=== PATIENT | male | born 1965 | race Caucasian/White ===

== ENCOUNTER → 2018-04-25 10:28 | Outpatient (CLI) | payer BC, SELFPAY ==
--- NOTE | 2018-04-25 10:33 | XR_ITS ---
XR shoulder LT min 2V HISTORY: ITS.REASON: LT SHOULDER PAIN ORDERING PHYSICIAN: Zachary Grissom MD PATIENT AGE: 52 years Comparison: None FINDINGS: No fracture or dislocation. No lytic or blastic change. There is normal mineralization. The joint spaces are well-preserved. No significant degenerative/arthritic changes. No erosive changes evident. No subacromial stenosis IMPRESSION: Negative, no acute finding
== END ==
PROVIDERS: PCP Family Medicine; Visit Provider Family Medicine
DX: M25.512 Pain in left shoulder (principal)
CPT/HCPCS: 73030

== ENCOUNTER → 2019-04-26 14:40 | Outpatient (CLI) | payer BC, SELFPAY ==
[2019-04-26 17:09] VITALS: BMI 25.8
== END ==
PROVIDERS: PCP Family Medicine; Visit Provider Family Medicine
DX: Z71.3 Dietary counseling and surveillance (principal)
CPT/HCPCS: 97802

== ENCOUNTER → 2019-07-25 11:37 | Outpatient (CLI) | payer BC, SELFPAY ==
[2019-07-25 14:00] LABS: Blood Urea Nitrogen 12 mg/dL (7-18); Creatinine,Serum 0.83 mg/dL (0.70-1.30); Estimated Glomerular Filt Rate 96 ml/min (>60); GFR (African American) 116 ML/MIN (>60)
== END ==
PROVIDERS: Visit Provider Urology
DX: R10.2 Pelvic and perineal pain (principal); N41.1 Chronic prostatitis
CPT/HCPCS: 36415; 82565; 84520

== ENCOUNTER → 2019-08-03 08:48 | Outpatient (CLI) | payer BC, SELFPAY ==
--- NOTE | 2019-08-03 08:50 | CT_ITS ---
PROCEDURE: CT ABDOMEN PELVIS WO/W CON CLINICAL INDICATION: CHRONIC PELVIC PAIN Chronic pelvic pain, chronic prostate pain, rectal pain COMPARISON: No exams were available for comparison TECHNIQUE: IV Contrast: 75ML OPTIRAY 350 Oral Contrast 450ml Redicat Axial images obtained with sagittal and coronal reformats. All CT scans at the facility use one or more dose reduction, viz: automated exposure control, ma/kV adjustment per patient size (including targeted exams where dose is matched to indication, i.e. head), or iterative reconstruction technique. Images are performed without and with contrast with 10 minutes delayed images. FINDINGS: No acute finding in the lung bases. Calcified hilar lymph nodes and subcarinal lymph nodes noted. Extensive coronary artery calcification also present. The There is a gallstone noted. The liver, spleen, adrenal glands, pancreas, and kidneys have an unremarkable appearance. No renal or ureteral calculi. No hydronephrosis. No intestinal obstruction or free air. Unremarkable appendix. There are scattered colonic diverticula within the descending and sigmoid colon. There is mild thickening of the sigmoid colon which may be due to muscular hypertrophy. No stranding of the pericolic fat evident. There is central prostate coarse calcifications. Urinary bladder has an unremarkable appearance. No acute bony anomalies IMPRESSION: 1. Cholelithiasis 2. Diverticulosis of the descending and sigmoid colon with mild mucosal thickening of the sigmoid colon which may be due to muscular hypertrophy 3. Otherwise negative Dictated by: Alfonso Guzman MD 08/04/2019 06:14 Electronically signed by Alfonso Guzman MD in [place] 08/04/2019 06:14
== END ==
PROVIDERS: PCP Family Medicine; Visit Provider Urology
DX: G89.29 Other chronic pain (principal); R10.2 Pelvic and perineal pain
CPT/HCPCS: 74178; Q9967

== ENCOUNTER → 2019-09-09 10:43 | Outpatient (CLI) | payer BC, SELFPAY ==
[2019-09-09 12:43] LABS: Blood Urea Nitrogen 12 mg/dL (7-18); Creatinine,Serum 0.89 mg/dL (0.70-1.30); Estimated Glomerular Filt Rate 89 ml/min (>60); GFR (African American) 107 ML/MIN (>60)
== END ==
PROVIDERS: Visit Provider Colon & Rectal Surgery
DX: Z01.818 Encounter for other preprocedural examination (principal)
CPT/HCPCS: 36415; 82565; 84520

== ENCOUNTER → 2019-09-12 08:28 | Outpatient (CLI) | payer BC, SELFPAY ==
--- NOTE | 2019-09-12 08:31 | MR_ITS ---
PROCEDURE: MR LUMBAR SPINE WO/W CON CLINICAL INDICATION: NUMNBESS AND TINGLING LEFT LEG Bilateral buttock pain, left leg pain numbness and tingling COMPARISON: CT ABDOMEN PELVIS WO/W CON from 08/03/2019 TECHNIQUE: Standard multiplanar multiecho sequences are performed without and with gadolinium enhancement. 3-D MIP and myelographic images are also rendered and reviewed FINDINGS: The spinal cord ends at the L1 level. There is normal alignment. L1-L2: Unremarkable. L2-L3: Mild degenerative disc disease with minimal bulging disc and mild facet and ligamentum hypertrophy with mild bilateral foraminal narrowing. There is a small annular fissure along the posterior aspect of the disc with minimal protrusion without impingement. L3-L4: Unremarkable. L4-5: Minimal bulging of the disc along with facet and ligamentum hypertrophy with mild bilateral foraminal narrowing. This is slightly greater on the left. L5-S1: Degenerative disc disease with mild bulging disc with a small broad-based central/left paracentral disc protrusion abutting the anterior medial aspect of the left S1 nerve root without displacement. No extruded herniated disc or canal stenosis. IMPRESSION: 1. L2-L3: Mild degenerative disc disease with minimal bulging disc and mild facet and ligamentum hypertrophy with mild bilateral foraminal narrowing. There is a small annular fissure along the posterior aspect of the disc with minimal protrusion without impingement. 2. L4-5: Minimal bulging of the disc along with facet and ligamentum hypertrophy with mild bilateral foraminal narrowing. This is slightly greater on the left. L5-S1: Degenerative disc disease with mild bulging disc with a small broad-based central/left paracentral disc protrusion abutting the anterior medial aspect of the left S1 nerve root without displacement. 3. No extruded herniated disc or canal stenosis. Dictated by: Alfonso Guzman MD 09/13/2019 09:10 Electronically signed by Alfonso Guzman MD in [place] 09/13/2019 09:10
== END ==
PROVIDERS: PCP Family Medicine; Visit Provider Colon & Rectal Surgery
DX: R20.0 Anesthesia of skin (principal); R20.2 Paresthesia of skin; M79.605 Pain in left leg
CPT/HCPCS: 72158; 76376; A9576

== ENCOUNTER → 2020-01-15 09:01 | Outpatient (POV) | payer BC, SELFPAY ==
[2020-01-15 09:11] VITALS: BP 153/96; PULSE 86; RESP 18; O2SAT 99; BMI 25.0
--- NOTE | 2020-01-15 13:12 | HMH.PMCON ---
Assessment and Plan (1) Degenerative disc disease Current visit: Yes Status: Chronic Qualifiers: Spinal region: lumbar Qualified Code(s): M51.36 - Other intervertebral disc degeneration, lumbar region Category: Medical - Assessment and plan all Dx Assessment and Plan for all problems:: We will schedule a L4-L5 lumbar epidural steroid injection with the patient. We will see if this is any benefit to him. I will follow-up with him after this reassess his symptoms at that time he has been instructed to call the office if he has any issues prior to his next appointment. Dr. Leone has reviewed this note and agrees with this plan of care. This note was dictated using voice recognition software and may contain errors or omissions HPI - Data of Consult Consult date: 01/15/20 Requesting Physician: Opal Contreras APRN Primary Care Provider: Zachary Grissom MD - Consult Narrative Reason for consult: Rectal pain, back pain, leg pain History of present illness: Mr. Adkins is a 54 year old male who presents today with for consultation in regard to his low back rectal and leg pain. He rates his pain a 6 out of 10 today. He has had it for over 6 months. 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 Patient was seen by both gastroenterology and his primary care physician. Patient had a colonoscopy which was normal. Patient had an enlarged prostate which resolved. Patient has pain in his low back reactive it is left leg. Patient does have an MRI showing S1 nerve abutment. Patient I discussed epidural injections he is interested in moving forward with this. He is not on any anticoagulation therapy. CC: Opal Contreras APRN [facility] History I have reviewed the patient's past medical history: Yes Medical History: Reports:: Hyperlipidemia, Hypertension Denies:: Coronary Artery Disease, Diabetes Mellitus Type 1, Diabetes Mellitus Type 2 *Have you ever received a pneumonia vaccine?: Yes *Have you received a flu vaccine this season?: Yes Other Surgeries: Yes: Colonoscopy Amputation: No Fractures: No - *Social History Smoking Status: Current every day smoker Alcohol Intake: never Substance Use Type: denies use *Occupational Status:: other Housing: apartment Household Members: spouse *Travel in the last 8 weeks: None Family Hx:: Unable to obtain Review of Systems - Review of Systems ROS General: no recent weight change, no fever, no sleep disturbances Respiratory: no cough, no shortness of air, no recurring pulmonary infections Cardiovascular/Peripheral Vascular: No chest pain, No palpitations, no edema, no shortness of breath. Gastrointestinal: no new onset incontinence, normal bowel movements reported Genitourinary: no new onset incontinence Musculoskeletal: Back pain, leg pain, rectal pain Psychiatric: normal mood/ affect, Neurological: [denies new onset weakness in extremities], [denies new onset balance issues] Meds Home Medications Medication Instructions Recorded Confirmed Type gabapentin 100 mg capsule 100 mg PO DAILY 09/05/19 09/05/19 History Amlodipine Besylate [Amlodipine 5 mg PO DAILY 01/15/20 01/15/20 History 5mg tab] Ezetimibe 10 mg PO DAILY 01/15/20 01/15/20 History Gabapentin [Gabapentin 300mg Cap] 300 mg PO HS 01/15/20 01/15/20 History LORazepam [Lorazepam] 0.5 mg PO DAILY 01/15/20 01/15/20 History Rosuvastatin Calcium 10 mg PO DAILY 01/15/20 01/15/20 History allopurinoL [Allopurinol 100mg 100 mg PO DAILY 01/15/20 01/15/20 History tablet] lisinopriL [Lisinopril 2.5mg Tab] 2.5 mg PO DAILY 01/15/20 01/15/20 History Allergies Allergy/AdvReac Type Severity Reaction Status Date / Time amoxicillin [AMOXICILLIN] Allergy Unknown Unverified 09/05/19 13:04 Objective Vital signs: Pulse Resp BP Pulse Ox 86 18 153/96 H 99 01/15/20 09:11 01/15/20 09:11 01/15/20 09:11
== END ==
PROVIDERS: PCP Family Medicine; Visit Provider Clinical Nurse Specialist Family Health
DX: M51.36 Other intervertebral disc degeneration, lumbar region (principal); M79.606 Pain in leg, unspecified; K62.89 Other specified diseases of anus and rectum; Z72.0 Tobacco use
CPT/HCPCS: 99202

== ENCOUNTER → 2020-02-19 10:26 | Outpatient (POV) | payer BC, SELFPAY ==
--- NOTE | 2020-02-19 11:23 | HMH.VVPMSO ---
[facility] Virtual Visit SOAP Consent for virtual visit:: With the recent concerns about the COVID-19, we are trying to minimize exposure to you by shifting to telehealth appointments whenever possible. It restricts me from seeing you in person, but the trade off is protecting you during this pandemic. Can you see and hear me okay, and do you consent to this option? If not, I would be happy to see if we can reschedule your appointment in the future, when feasible. Has patient consented to this virtual visit?: Yes Subjective:: Patient's assessment is being performed today via telemedicine. Patient has chosen to have telemedicine visit for his symptoms due to risk of COVID19. Patient is a pleasant 54-year-old who is being treated for low back pain with lumbar radiculopathy symptoms. The patient recently underwent a lumbar epidural steroid injection. He says that he did not get any relief following the injection. He does rate his pain a 1 or 2 out of 10 today, however. Patient does say most of his pain is in his mid coccygeal area, however, after further discussion, the patient is also complaining of bilateral SI joint pain. Patient says that his pain is worse with walking. He denies any type of back pain. He says the pain is mainly in his bilateral buttocks. He says he does not have any pain when sitting. He also says he does not have pain with standing. Patient says the pain is noticeable pool with walking. Review of Systems General: No recent weight changes, no fever, no sleep disturbances Respiratory: No cough, no shortness of air, no recurring pulmonary infections Cardiovascular/peripheral vascular: No chest pain, no palpitations, no edema, no shortness of breath Gastrointestinal: No new onset incontinence, normal bowel movements reported Genitourinary: No new onset incontinence Musculoskeletal: Bilateral buttock pain Psychiatric: Normal mood/affect Neurological: [Denies weakness in extremities], [denies balance issues] Objective:: Physical exam General: Alert and oriented x3, no acute distress, pleasant and cooperative, [on room air] Lungs: Respirations even and unlabored, symmetrical chest expansion Eyes: PERRL Musculoskeletal: Flexion and extension of lumbar spine somewhat guarded secondary to pain, deep tendon reflexes normal, strength in upper and lower extremities [5/5], [abnormal gait noted], positive [place]'s test, positive Bryan's test, positive compression test Neurological: Speech clear, manager system equal, no gross sensory deficit Assessment:: Bilateral sacroiliitis Plan:: Given the patient's symptoms, and positive Pradeep, Bryan's, compression test, the patient would benefit from bilateral SI joint injections. We will schedule him for the injections. He does understand we will not be able to perform the injections until the coronavirus pandemic has resolved. Unfortunately, at this time, we are unable to perform injections within the clinic. Patient has been instructed to contact clinic if he has any concerns before his next appointment. Dr. Leone has reviewed this note and agrees with this plan of care. This note was dictated using voice recognition software and make contain errors or omissions. This encounter was performed as telemedicine. The visit was performed via a secure to a video and audio to minimize risk and transmission of COVID19. Patient understands limitations of telemedicine visits which include inability to check reflexes, possibly missing subtle findings on the physical exam. Alternative options were presented to the patient and the patient did elect to proceed with the visit. The patient and I specifically discussed risk factors for COVID19. These risks include, but are not limited to age greater than 60, heart or lung disease, diabetes, immunosuppression, and travel. We also discussed NSAIDs may worsen COVID19 infection or symptoms. Patient should not use NSAIDs to treat COVID19 signs
== END ==
PROVIDERS: Visit Provider Clinical Nurse Specialist Family Health
DX: M46.1 Sacroiliitis, not elsewhere classified (principal)
CPT/HCPCS: 99212

== ENCOUNTER → 2020-03-04 12:27 | Outpatient (POV) | payer BC, SELFPAY | PROVIDERS: PCP Family Medicine; Visit Provider Specialist | DX: M51.26 Other intervertebral disc displacement, lumbar region (principal) | CPT/HCPCS: 95886; 95909 ==

== ENCOUNTER 2020-03-08 07:48 | Day surgery (SDC) | payer BC, SELFPAY ==
[2020-03-08 08:02] VITALS: BP 144/83; PULSE 78; RESP 18; TEMP 36.6; O2SAT 99; BMI 24.8
[2020-03-08 08:32] VITALS: BP 138/81; PULSE 76; RESP 18
[2020-03-08 08:34] VITALS: BP 140/85; PULSE 79; RESP 18; O2SAT 99
--- NOTE | 2020-03-08 08:41 | HMH.PMPROC ---
- Procedure Date: 03/08/20 Time: 08:41 Anesthesiologist:: Sonu Leone MD Complications:: None Pre-procedure Diagnosis:: Sacroiliitis Post-procedure Diagnosis:: Same Indications for Procedure:: This patient is a pleasant 54-year-old white male who we have been treating for pain in the lower back hips and in the tailbone area. He did receive a epidural steroid injection which did not give him much benefit. We will do bilateral SI joint injections today to see if this helps with his pain symptoms. He does have a positive Bryan's test bilaterally. Is positive SI joint compression test bilaterally. He has a positive Pradeep test bilaterally. We will do this today as his pain is increasing significantly it is affecting his daily function and activities of daily living. We will do an injection today to keep him out of the emergency room and off oral opioids. Procedure Details:: B/L SI joint injection under fluoroscopy Informed consent was obtained and the risks and benefits of the procedure was explained to the patient. The patient was taken to the procedure room and placed prone on the procedure table. The patient was prepped using ChloraPrep. The skin and subcutaneous tissues overlying the SI joints were anesthetized using lidocaine. I placed a 22-gauge needle first in the left SI joint and second in the right SI joint. Needle placement was confirmed with dye. After this we injected 5 mL bupivacaine 0.25% and Depo-Medrol 40 mg into each SI joint. Patient tolerated the procedure well with no complication. Plan and Disposition:: We will follow-up with him in 2 weeks. Will reevaluate his symptoms at that time.
[2020-03-08 08:49] VITALS: BP 132/80; PULSE 63; RESP 20; O2SAT 99
== END 2020-03-08 08:50 | disposition home or self-care (01) ==
LOC: SC.PAINP 07:50
PROVIDERS: PCP Family Medicine; Visit Provider Anesthesiology
DX: M46.1 Sacroiliitis, not elsewhere classified (principal); I10 Essential (primary) hypertension; Z88.1 Allergy status to other antibiotic agents; Z79.899 Other long term (current) drug therapy; Z79.82 Long term (current) use of aspirin; Z79.51 Long term (current) use of inhaled steroids
CPT/HCPCS: 27096; G0260; J1030; Q9966

== ENCOUNTER → 2020-03-25 11:40 | Outpatient (POV) | payer BC, SELFPAY ==
[2020-03-25 11:55] VITALS: BP 122/82; PULSE 89; RESP 18; TEMP 36.6; O2SAT 97; BMI 24.8
--- NOTE | 2020-03-26 08:29 | P.CONS_ITS ---
[facility] Pain Management SOAP Note Subjective:: Patient is a pleasant 54-year-old white male who presents today for follow-up after bilateral SI joint injections. Patient has had epidurals along with SI joint injections. It is not benefited him extremely however he states he has been able to discontinue his pain medication at home. He rates his pain a 2 out of 10. He has a constant pressure in his low coccygeal/rectal area. Patient and I discussed a compounding cream and potentially some physical therapy to utilize ultrasound to help with his pain. We will get him a physical therapy consultation to date. ROS General: no recent weight change, no fever, no sleep disturbances Respiratory: no cough, no shortness of air, no recurring pulmonary infections Cardiovascular/Peripheral Vascular: No chest pain, No palpitations, no edema, no shortness of breath. Gastrointestinal: no new onset incontinence, normal bowel movements reported Genitourinary: no new onset incontinence Musculoskeletal: Low back, rectal pain Psychiatric: normal mood/ affect, Neurological: [denies new onset weakness in extremities], [denies new onset balance issues] Objective:: Physical Exam General: Alert and oriented x3, no acute distress, pleasant and cooperative, [on room air] Lungs: Resps E/U, Symmetrical chest expansion, Eyes: PERRL Musculoskeletal: Patient has normal range of motion however going from a seated to standing position he does seem to have some guarding secondary to pain. Deep tendon reflexes normal, strength in upper and lower extremities [5/5], normal gait noted Neurological: speech clear, upper marker equal, no gross sensory deficits Assessment:: Rectal pain, coccygeal pain Plan:: Patient has been seen by multiple surgeons. He has had a normal colonoscopy. Patient and I discussed physical therapy along with some compounding cream. We will move forward with this and see the patient back in 2 to 3 months. Patient's been instructed to call the office if he has any issues prior to his next appointment. Dr. Leone has reviewed this note and agrees with this plan of care. This note was dictated using voice recognition software and may contain errors or omissions [facility] History I have reviewed the patient's past medical history: Yes Medical History: Reports:: Diabetes Mellitus Type 2, Hyperlipidemia, Hypertension Denies:: Cancer, Coronary Artery Disease, Diabetes Mellitus Type 1, MRSA, Seizures *Have you ever received a pneumonia vaccine?: Yes *Have you received a flu vaccine this season?: Yes Other Medical History: Denies: Blood Transfusion Reaction Other Surgeries: Yes: Colonoscopy Amputation: No Fractures: No - *Social History Smoking Status: Current every day smoker Alcohol Intake: never Substance Use Type: denies use *Occupational Status:: other Housing: apartment Household Members: spouse *Travel in the last 8 weeks: None Family Hx:: Unable to obtain
== END ==
PROVIDERS: PCP Family Medicine; Visit Provider Clinical Nurse Specialist Family Health
DX: K62.89 Other specified diseases of anus and rectum (principal); M53.3 Sacrococcygeal disorders, not elsewhere classified
CPT/HCPCS: 99212

== ENCOUNTER 2020-06-21 09:00 | Outpatient (RCR) | payer BC, SELFPAY ==
--- NOTE | 2020-03-25 16:38 | HMH.PTOPEV ---
PT Outpatient Evaluation Rehab PT Outpatient Evaluation Start: 03/25/20 15:36 Freq: Status: Active Protocol: Document 03/25/20 16:06 [email or web address] (Rec: 03/25/20 16:38 [email or web address] [id number]) Electronically Signed By Reid Bear, PT 03/25/20 16:06 Outpatient Therapy Subjective History Subjective History Pt. is a 54 year old male who presents to outpatient PT clinic with reports of chronic and constant rectal P! of insidious onset for one year. Pt. reports symptoms beginning in LB, but now states moved down into my butt. Recent diagnostic imaging positive for lumbar spine bulging discs per pt. report. Pt. reports no symptom relief post LB injection, but states some symptom relief post coccygeal injection in the Pain Clinic. Pt. reports symptoms worsen with sitting and twisting, but is gets relief w/ standing and walking. Pt. reports LLE radicular symptoms, but states complete symptom relief w/ Gabapentin. Pt. denies bowel/ baldder dysfunction. PMH includes Colonoscopy, Nephrolithiasis, Hypertension, Hyperlipidemia, and Bronchitis. Current medications include Gabapentin , Ibuprofen, Rosuvastatin, and Allopurinol. Chief Complaint Pain Symptom Type Burning Symptoms Relieved By Activity Symptoms Aggravated By Sitting,Twisting Prior Functional Limitations None Current Functional Limitations Driving,Sitting,Squatting Symptom Description Constant but Variable Level of pain today (0-10) 2 Pain scale - at its best (0-10) 1 Pain scale - at its worst (0-10) 6 Lumbopelvic Eval Posture Thoracic Spine Posture Standing Position Neutral Lumbar Spine Posture Standing Position Neutral Assistive device Assistive Devices None / NA Gait Observation General Gait Pattern Observation No Deviations/Normal Palapation tenderness bilateral Lumbar/Sacral Palpation Findings None/Normal Lumbar/Sacral Palpation Overall Comment RLE adductor vanessa mid muscle
--- NOTE | 2020-05-03 10:30 | HMH.RHREAS ---
Rehab Reassessment Rehab OP Re-assessment Start: 05/03/20 09:48 Freq: Status: Active Protocol: Document 05/03/20 09:48 JADE (Rec: 05/03/20 10:30 JADE [id number]) Electronically Signed By eFrcho Luevano, PT 05/03/20 09:48 Rehab Re-assessment Subjective Subjective Pt reports significantly improved pain in the anal sphincter area @2/10 on VAS. Objective Objective Notes TTP: B ADD MM BELLY 1-2/4 MMT: B HIP ADD 4+-5/5 AROM: LUMBAR SPINE WFL Assessment Progress Assessment Progressing as Expected Assessment Notes PT W/IMPROVED STRENGTH, AND TTP Patient goals met STG'S 3/3 LTG'S 4/6 Goals Not Met LTG'S 2/6 Plan Plan PT TO CONT. W/SKILLED P.T. TO MAKE FURTHER IMPROVEMENTS IN STRENGTH AND TTP TO ALLOW FOR OPTIMAL FUNCTION Frequency of Therapy 1-2X/WK Duration of therapy 3-4WKS Time and Billing Re-Eval Time 15 Re-Eval Billing Units 1 PHYSICIAN CERTIFICATION: I certify the specified therapy services for Jericoh Adkins are required, authorized, and reviewed every 30 days.
== END 2020-06-21 10:06 | disposition home or self-care (01) ==
LOC: PT 09:00
PROVIDERS: PCP Family Medicine; Visit Provider Clinical Nurse Specialist Family Health
DX: M53.3 Sacrococcygeal disorders, not elsewhere classified (principal)
CPT/HCPCS: 20560; 20561; 97010; 97014; 97110; 97140; 97163; 97164; G0283

== ENCOUNTER 2023-01-21 17:16 | Emergency (ER) | payer BC, SELFPAY ==
[2023-01-21 17:20] VITALS: BP 134/98; PULSE 91; RESP 20; TEMP 36.8; O2SAT 98; BMI 26.3
--- NOTE | 2023-01-21 17:32 | EXP.UTC ---
Discharge Plan Disposition Patient Disposition: Home, Self-Care Condition: Good Prescriptions Prescriptions: New azithromycin [Zithromax] 250 mg tablet 250 mg PO UD DOSE PK Qty: 6 0RF Rx Instructions: Take two (2) tablets today, then one (1) tablet days #2 thru #5 benzonatate [benzonatate] 100 mg capsule 100 mg PO TIDP PRN (Reason: Cough) Qty: 30 0RF No Action gabapentin 100 mg capsule 100 mg PO DAILY amlodipine 5 MG tablet 5 mg PO DAILY allopurinol 100 tablet 100 mg PO DAILY lorazepam 0.5 tablet 0.5 mg PO DAILY gabapentin 300 capsule 300 mg PO HS lisinopril 2.5 tablet 2.5 mg PO DAILY ezetimibe 10 tablet 10 mg PO DAILY rosuvastatin 10 MG tablet 10 mg PO DAILY aspirin 81 MG tablet,delayed release (DR/EC) 81 mg PO DAILY Referrals Follow up/Referrals: Zachary Grissom MD [Primary Care Provider] - See instructions Activity Restrictions/Add. Instructions Additional Instructions/Restrictions: Drink plenty of fluids. Take tylenol or ibuprofen for pain or fever. Take the medications as directed. Follow up with your regular doctor. GO TO THE ER FOR ANY WORSENING SYMPTOMS Don't start the oral steroids until tomorrow, since you had the shot here today. Clinical Impressions Clinical Impression: Sinusitis Instructions Patient Instructions: Sinusitis, DI for Sinusitis, Dexamethasone Injection Discharge ED Provider: Jericho Olivia [facility] HPI General Stated complaint: Sinus, Congestion Cough Time Seen by Provider: 01/21/23 17:21 History of Present Illness Provider Complaint: He states that for the past 1 week he has had sinus congestion, sore throat and a cough. Related Data Home Medications Medication Instructions Recorded Confirmed gabapentin 100 mg capsule 100 mg PO DAILY Pain 09/05/19 03/08/20 allopurinol 100 mg tablet 100 mg PO DAILY Supplement 01/15/20 03/08/20 amlodipine 5 mg tablet 5 mg PO DAILY Hypertension 01/15/20 03/08/20 ezetimibe 10 mg tablet 10 mg PO DAILY High cholesterol 01/15/20 03/08/20 gabapentin 300 mg capsule 300 mg PO HS Pain 01/15/20 03/08/20 lisinopril 2.5 mg tablet 2.5 mg PO DAILY Hypertension 01/15/20 03/08/20 lorazepam 0.5 mg tablet 0.5 mg PO DAILY Anxiety 01/15/20 03/08/20 rosuvastatin 10 mg tablet 10 mg PO DAILY High cholesterol 01/15/20 03/08/20 aspirin 81 mg tablet,delayed 81 mg PO DAILY Blood thinner 01/26/20 03/08/20 release Previous Rx's Medication Instructions Recorded azithromycin 250 mg tablet 250 mg PO UD DOSE PK #6 tabs 01/21/23 (Zithromax) benzonatate 100 mg capsule 100 mg PO TIDP PRN Cough #30 caps 01/21/23 Allergies Allergy/AdvReac Type Severity Reaction Status Date / Time nabumetone Allergy Mild Rash Verified 01/21/23 17:40 amoxicillin [AMOXICILLIN] Allergy Unknown Verified 01/21/23 17:40 ciprofloxacin Allergy Unknown Verified 01/21/23 17:40 [facility] Disclaimer: The information contained in this section may have been updated after the patient was seen, as this information can be updated by other users. Social History Smoking Status: Current every day smoker alcohol intake: never substance use type: denies use current occupational status: other Travel in the last 8 weeks: None household members: spouse housing: apartment current occupational exposures/hazards: No caffeine: No ROS Obtained: Yes All systems reviewed & no additional complaints except as documented Constitutional Constitutional: Reports chills and Reports fever(s) Eyes Eyes: Denies eye discharge ENT Ears, Nose, Mouth, and Throat: Reports as per HPI Cardiovascular Cardiovascular: Denies chest pain Respiratory Respiratory: Denies chest congestion and Reports cough Gastrointestinal Gastrointestingal: Reports nausea; Denies abdominal pain, constipation, cramping, diarrhea or vomiting Musculoskeletal Musc
[2023-01-21 18:27] VITALS: BP 134/98; PULSE 91; RESP 20; TEMP 36.8; O2SAT 98
== END 2023-01-21 18:26 | disposition home or self-care (01) ==
PROVIDERS: Emergency Provider Nurse Practitioner Family; PCP Family Medicine
DX: J32.9 Chronic sinusitis, unspecified (principal)
CPT/HCPCS: 99212; 99213; G0463

== ENCOUNTER 2024-06-20 10:28 | Outpatient (POV) | payer BC, SELFPAY | END 2024-06-20 23:59 | disposition home or self-care (01) | LOC: SC 10:29 | PROVIDERS: PCP Family Medicine; Visit Provider Dermatology | DX: Z00.00 Encounter for general adult medical examination without abnormal findings (principal) ==

== ENCOUNTER 2025-08-16 15:01 | Outpatient (CLI) | payer BC, SELFPAY ==
--- OUTSIDE RECORDS SUMMARY | 2024-03-20 06:00 | XMS_ITS ---
Author Organization [facility] Address [address] [place] [phone] Care Team Providers Care Hot Dimpling Machine Operator Name Role Phone Rhonda Grissom Primary Care Provider Allergies Allergen (clinical drug ingredient) Drug/Non Drug Allergy documented on EMR Reaction Allergy Type Onset Date Status amoxicillin Amoxicillin Unknown Drug Allergy Act joanne nabumetone Nabumetone rash Drug Allergy Activ e Results Component Value Reference Range Notes Glycohemoglobin A1c (in hous e) Reviewed date:03/20/2024 11:09:37 AM Interpretation:6.0 Performing Lab: Notes/Report: 6.0 glycohemoglobin 6.0% 5 - 6.5 % P-Comprehensive Metabolic Pa shaw (CMP) Reviewed date:03/21/2024 09:23:17 AM Interpretation:Satisfactory Performing Lab: Notes/Report: Test performed by [facility] , [address], [place] [address] Chidi Villaseñor MD, Roto Gravure Press Operator CLIA: [id number] Sodium 139 135-145 mEq/L Potassium 4.6 3.5-5.3 mEq/L Chloride 100 97-108 mEq/L CO2 24 22-32 mEq/L Glucose 128 65-99 mg/dL BUN 14 8-23 mg/dL Creatinine 1.05 0.70-1.30 mg/dL Calcium 10.0 8.6-10.4 mg/dL eGFR by Creatinine 81 >59 mL/min/1.73m2 Protein 7.7 6.0-8.3 g/dL Albumin 4.5 3.5-5.3 g/dL Alkaline Phosphatase 105 40-129 IU/L ALT (SGPT) 36 <5-55 IU/L AST (SGOT) 33 <5-46 IU/L Bilirubin, Total 0.7 <0.2-1.2 mg/dL A/G Ratio 1.4 1.1-2.5 mg/dL P-Lipid Panel Reviewed date:03/21/2024 09:23:46 AM Interpretation:Normal Performing Lab: Notes/Report: Test performed by [facility], [address] , [address], [place] [address] Chidi Villaseñor MD, Roto Gravure Press Operator CLIA: [id number] Cholesterol 124 <200 mg/dL Triglycerides 99 <150 mg/dL HDL Cholesterol 46 >39 mg/dL Cholesterol / HDL Ratio 2.70 0.00-4.99 Ratio Non-HDL Cholesterol 78 <130 mg/dL LDL Cholesterol (Calculation) 58 <130 mg/dL LDL Cholesterol Levels* Less than 100 mg/dL Optimal 100 to 129 mg/dL Near Optimal/ Above Optimal 130 to 159 mg/dL Borderline High 160 to 189 mg/dL High 190 mg/dL and above Very High * Categories as recommended by the 2004 ATPIII guidelines LDL/HDL Ratio 1.3 <3.3 Ratio LDL Cholesterol Patient History Test Date: 03/20/2024 LDL Results: 58 Units: mg/dL % Change: - P-PSA Reviewed date:03/21/2024 09:24:11 AM Interpretation:Normal Performing Lab: Notes/Report: Test performed by [facility] [address] [place] [address] Radha Healy , [place] [address] Chidi Villaseñor MD, Roto Gravure Press Operator CLIA: [id number] PSA 1.38 <4.00 ng/mL Please note this is an ultrasensitive PSA assay with a lower limit of detection of 0.014 ng/mL. This test is performed by the [employer] ECLIA methodology. Values obtained with different assay methods or kits cannot be directly compared. P-Microalbumin/Creatinine, R andom Urine Sample Reviewed date:03/21/2024 09:22:51 AM Interpretation:Normal Performing Lab: Notes/Report: Test performed by [facility] [address] [place] [address] Radha Healy C, [place] [address] Chidi Villaseñor MD, Roto Gravure Press Operator CLIA: [id number] Albumin/Creatinine Ratio, Urine 4 0-30 ug/m g Microalbumin, Urine, Random 1.0 Creatinine, Urine 224.8 Reason For Referral Reason [facility] D[facility] referra filippo Hylton Diagnosis 1 Essential hypertensi on (I10) Diagnosis 2 Screening for prosta te cancer (Z12.5) Diagnosis 3 Type 2 diabetes manolo itus without complication, without long-term current use of insulin (E11.9) [facility] Referring Provider First Name Rhonda Priest Referring Provider Last Name Jaciel Referring Provider Speciality [facility] Referred Provider Specialty Dermatology General Notes Iris Soria 03/20/20 24 3:31:56 PM > [facility] 06/20/2024 at 10:00am Referral Priority Routine REASON FOR VISIT 6 Month Check Up, Needs labs with PSA Medications Medication SIG (Take, Route, Frequency, Duration) Notes Start Date End Date Status amLODIPine Besylate 5 MG Take 1 tablet by mouth once daily; Duration: 90 Active Rosuvastatin Calcium 5 MG TAKE 1 TABLET BY MOUTH AT BEDTIME; Duration: 90 Active Ezetimibe 10 MG 1 tab(s) orally once a day; Duration: 90 days Active Aspirin 81 MG 1 TAB P.O. Q DAY 05/23/2007 Active Neurontin 300 MG ONE QHS *Please review and pick correct strength-formulat ion from AppEnsure options. If intended option is not shown, discontinue and re-order from Quick Search* 08/23/2019 Not-Taking Allopurinol 100 MG 2 tab(s) orally once daily; Duration: 90 Active Fluticasone Propionate 50 MCG/ACT 2 spray(s) intranasally once a day; Duration: 90 Active Ativan 0.5 MG 1 tab(s) orally 3 times a day prn; Duration: 30 days 11/29/2023 Active Lisinopril 2.5 MG Take 1 tablet by mouth once daily; Duration: 90 Active CoQ10 100 MG 2 cap(s) orally once a day 09/22/2011 Active Vitamin D3 50 MCG (2000 UT) 1 tab(s) orally once a day; Duration: 30 day(s) Active B-12 1000 MCG 1 tab(s) orally once a day; Duration: 30 day(s) Active Vital Signs Weight 181 lbs 03/20/2024 Blood pressure systolic 112 mm Hg 03/20/20 24 Blood pressure diastolic 86 mm Hg 024 Heart Rate 83 /min 03/20/2024 Height 68 in 03/20/2024 BMI 27.52 kg/m2 03/20/2024 Encounters Encounter Location Date Provider Diagnosis [facility] [address] [facility] [address] [phone] 03/20/2024 Rhonda Grissom Essential hypertensi on I10 ; Type 2 diabetes mellitus without complication, without long-term current use of insulin E11.9 and Screening for prostate cancer Z12.5 Assessments Encounter Date Diagnosis (ICD Code) Assessment Notes Treatment Notes Treatment Clinical Notes Section Notes 03/20/2024 Essential hypertension (ICD-10 - I10) cont present regimen 03/20/2024 Type 2 diabetes mellitus without complication, without long-term current use of insulin (ICD-10 - E11.9) 03/20/2024 Screening for prostate cancer (ICD-10 - Z12.5) Plan Of Treatment Treatment Notes Assessment Notes Essential hypertension cont present jorge men Referrals Referral Date Details 03/20/2024 03/20/2024, [facility] Derm referral. Dr. yHlton Next Appt Details Follow Up: 6 Months, Reason: Provider Name:Rhonda Vergara er, 10/01/2025 09:30:00 AM, [address], [address], [place], [place], [phone], Progress Notes * TAVARES TONGDOB:1965 ([age] yo M)Acc No.[id number]:03/20/2024 Progress Notes Patient: TAVARES HUNG Provider: Rhonda Grissom M.D. :1965 A ge:58 Y S ex:Male Date:03/20/2024 Address:[facility] [address], [place], [id number] Subjective: * Chief Complaints: * 1 . 6 Month Check Up. 2. Needs labs with PSA. * HPI: C ardiology: The patient is here for a check up on Hypertension , Hyperlipidemia, and Diabetes. Pt states he is fasting. Denies : Chest Pain. D enies : Short of Breath. D enies : Dizziness. D enies : Palpitations. M cora Reproductive: See note from prior prostate exam. No digital exam today. * ROS: D ERMATOLOGY: no R sammie. n o H jacquelyn. G ASTROENTEROLOGY: no N ausea. n o V omiting. n o D iarrhea.? U ROLOGY: no D ifficulty urinating. n o B lood in urine. * Medical History: H ypertension, Hyperlipidemia, Gout, Flu shot at [employer], Hep A shot at . Dept. 2018, Type 2 DM - onset 03/2019, Disc bulge L4-5, L5-S1, COVID 19 Vaccine Moderna, Nov 2020, COVID 19 Booster 09/2021. * Surgical History: n one . * Hospitalization/Major Diagno stic Procedure: k idney stones . * Family History: F ather: 72 yrs, complications from MVA, hypertension. M other: 68 yrs, lymphoma, hypertension. P aternal Grand Father: alive. P aternal Grand Mother: alive. M aternal Grand Father: alive. M aternal Grand Mother: alive. S iblings: Crohns. 1 sister(s) . . * Social History: C URRENT TOBACCO USE S moking Status: Patient does NOT smoke. C affeine: yes, frequency:daily. Exercise: no. Home smoke detector use: yes. Marital Status: Single. New since last visit: none. Occupation: yes. Past smoking status: no, Smoking status: Does not smoke. Occup. exposure: none. Recreational drug use: no. Alcohol: socially, Type: , Frequency: ,Years: , Determination:. Sexually active: yes. Travel ouside [place]: no. * Medications: T aking Aspirin 81 MG 1 TAB P.O. Q DAY , Taking Vitamin D3 50 MCG (2000 UT) Tablet 1 tab(s) orally once a day , Taking B-12 1000 MCG Tablet 1 tab(s) orally once a day , Taking CoQ10 100 MG Capsule 2 cap(s) orally once a day , Taking Allopurinol 100 MG Tablet 2 tab(s) orally once daily , Taking Fluticasone Propionate 50 MCG/ACT Suspension 2 spray(s) intranasally once a day , Taking Ativan 0.5 MG Tablet 1 tab(s) orally 3 times a day prn , Taking Lisinopril 2.5 MG Tablet Take 1 tablet by mouth once daily , Taking amLODIPine Besylate 5 MG Tablet Take 1 tablet by mouth once daily , Taking Rosuvastatin Calcium 5 MG Tablet TAKE 1 TABLET BY MOUTH AT BEDTIME , Taking Ezetimibe 10 MG Tablet 1 tab(s) orally once a day , Not-Taking Neurontin 300 MG ONE QHS , Notes to Pharmacist: *Please review and pick correct strength-formulation from Medispan options. If intended option is not shown, discontinue and re-order from Quick Search*, Medication List reviewed and reconciled with the patient * Allergies: A moxicillin, Nabumetone: rash. Objective: * Vitals: W t:181, Temp:98.4, BP:112/86, HR:83, Nurse:, Ht: 68, BMI:27.52. * Examination: G eneral Examination: General Appearance: N AD. H EENT: u nremarkable.?Oral cavity: n o lesions, mucosa moist and WNL, no erythema. N josh: s upple, no lymphadenopathy, no carotid bruits. C hest: n ormal shape and expansion. H eart: R SR. Lungs: c lear to auscultation. A bdomen: soft and nontender, no organomegaly or masses. N eurologic Exam: I ntact, gait normal. S kin: n ormal, no rash. P eripheral pulses: n ormal . B ack: skin changes of LS spine from use of heating pad. E xtremities: n o leg edema. Assessment: * Assessment: 1. E ssential hypertension - I10 (Primary) 2 . T ype 2 diabetes mellitus without complication, without long-term current use of insulin - E11.9 3 . S creening for prostate cancer - Z12.5 Plan: * Treatment: Value Reference Range A /G Ratio 1.4 1.1-2.5 - mg/dL * A lbumin 4.5 3.5-5.3 - g/dL * A lkaline Phosphatase 105 40-129 - IU/L * A LT (SGPT) 36 <5-55 - IU/L * A ST (SGOT) 33 <5-46 - IU/L * B ilirubin, Total 0.7 <0.2-1.2 - mg/dL * B UN 14 8-23 - mg/dL * C alcium 10.0 8.6-10.4 - mg/dL * C hloride 100 97-108 - mEq/L * C O2 24 22-32 - mEq/L * C reatinine 1.05 0.70-1.30 - mg/dL * G lucose 128 H 65-99 - mg/dL * P otassium 4.6 3.5-5.3 - mEq/L * S odium 139 135-145 - mEq/L * P rotein 7.7 6.0-8.3 - g/dL * e GFR by Creatinine 81 >59 - mL/min/1.73m2 * BurakKayleneh 03/21/2024 9 :23:01 AM > informed Pt about his lab ?LAB: P-Lipid Panel (Collection Date & Time - 03/20/2024 09:20 AM)?Normal* Value Reference Range C holesterol / HDL Ratio 2.70 0.00-4.99 - Ratio * C holesterol 124 <200 - mg/dL * H DL Cholesterol 46 >39 - mg/dL * L DL Cholesterol (Calculation) 58 <130 - mg/d L * L DL/HDL Ratio 1.3 <3.3 - Ratio * N on-HDL Cholesterol 78 <130 - mg/dL * T riglycerides 99 <150 - mg/dL * Aura Sumner 03/21/2024 9 :23:24 AM > informed Pt about his lab ?LAB: P-Microalbumin/Creatinine, Random Urine Sample (Collection Date & Time - 03/20/2024 09:20 AM)?Normal* Value Reference Range A lbumin/Creatinine Ratio, Urine 4 0-30 - ug /mg * C reatinine, Urine 224.8 - mg/dL * M icroalbumin, Urine, Random 1.0 - mg/dL * Aura Sumner 03/21/2024 9 :22:34 AM > informed Pt about his lab Notes: cont present regimen? Referral To:Dermatology ?Reason:[facility] Derm referral. Dr. Hylton 2.?Type 2 diabetes mellitus without complication, without long-term current use of insulin?LAB: Glycohemoglobin A1c (in house) (Collection Date & Time - 03/20/2024)? 6.0* Value Reference Range g lycohemoglobin 6.0% 5 - 6.5 % * Aura Sumner 03/20/2024 1 0:32:56 AM > , Provider reviewed results while patient in office. ? Referral To:Dermatology ?Reason:[facility] Derm referral. Dr. Hylton 3.?Screening for prostate cancer?LAB: P-PSA (Collection Date & Time - 03/20/2024 09:20 AM)?Normal* Value Reference Range P SA 1.38 <4.00 - ng/mL * Aura Sumner 03/21/2024 9 :23:54 AM > informed Pt about his lab ? Referral To:Dermatology ?Reason:[facility] Derm referral. Dr. Hylton * Procedure Codes: 3 6416 CAPILLARY BLOOD DRAW, [address] GLYCATED HEMOGLOBIN TEST, Modifiers: QW * Follow Up: 6 Months * Images: Billing Information: * Visit Code: 95521 Office Visit, Est Pt., Level 4. * Procedure Codes: 91012 CAPILLARY BLOOD DRAW. 24113 GLYCATED HEMOGLOBIN TEST. Modifiers: QW * Electronic signature of Rhonda Grissom MD on 08/16/2025 at 03:23 PM EDT Sign off status: Pending * Provider: Rhonda Grissom M.D. Date: 0 03/20/2024 Generated for Printi ng/Fadorinag/eTransmitting on: 0 08/16/2025 03:23 PM EDT History and Physical Notes * HPI (History of Present Illness) Category Sub-Category Detail Notes Category Not es Cardiology Short of Breath Chest Pain Palpitations Dizziness Examination Category Sub-Category Detail Notes Category Not es General Examination HEENT: unremarkable Heart: RSR Lungs: clear to auscultatio n Abdomen: soft and nontender, no organomegaly or masses Extremities: no leg edema General Appearance: NAD Skin: normal, no rash Neurologic Exam: Intact, gait normal Neck: supple, no lymphaden opathy, no carotid bruits Oral cavity: no lesions, mucosa m oist and WNL, no erythema Peripheral pulses: normal Back: skin changes of LS s pine from use of heating pad Genitalia: Chest: normal shape and exp ansion Consultation Request Notes Referral Date Referring Provider Referred Provider Not es 03/20/2024 [facility]
--- OUTSIDE RECORDS SUMMARY | 2024-09-22 05:30 | XMS_ITS ---
Author Organization [facility] Address [address] [place] [phone] Care Team Providers Care Missile Inspector Name Role Phone Rhonda Grissom Primary Care Provider [phone] Allergies Allergen (clinical drug ingredient) Drug/Non Drug Allergy documented on EMR Reaction Allergy Type Onset Date Status amoxicillin Amoxicillin Unknown Drug Allergy Act joanne nabumetone Nabumetone rash Drug Allergy Activ e Results Component Value Reference Range Notes Glycohemoglobin A1c (in hous e) Reviewed date:09/26/2024 11:40:37 AM Interpretation:6.7 Performing Lab: Notes/Report: 6.7 glycohemoglobin 6.7% 5 - 6.5 % P-Comprehensive Metabolic Pa shaw (CMP) Reviewed date:10/09/2024 12:29:22 PM Interpretation:gluc 123 Performing Lab: Notes/Report: Test performed by [facility] [address] [facility] , [address], [place] [address] Chidi Villaseñor MD, Screw Supervisor CLIA: [id number] Sodium 139 135-145 mmol/L Potassium 4.5 3.5-5.3 mmol/L Chloride 103 97-108 mmol/L CO2 22 22-32 mmol/L Glucose 123 65-99 mg/dL BUN 16 8-23 mg/dL Creatinine 0.89 0.70-1.30 mg/dL Calcium 9.3 8.6-10.4 mg/dL eGFR by Creatinine 98 >59 mL/min/1.73m2 Protein 6.9 6.0-8.3 g/dL Albumin 4.5 3.5-5.3 g/dL Alkaline Phosphatase 89 40-129 IU/L ALT (SGPT) 27 <5-55 IU/L AST (SGOT) 29 <5-46 IU/L Bilirubin, Total 0.6 <0.2-1.2 mg/dL A/G Ratio 1.9 1.1-2.5 P-Lipid Panel Reviewed date:10/09/2024 12:29:22 PM Interpretation:Normal Performing Lab: Notes/Report: Test performed by [facility] [address] , [address], [place] [address] Chidi Villaseñor MD, Screw Supervisor CLIA: [id number] Cholesterol 109 <200 mg/dL Triglycerides 80 <150 mg/dL HDL Cholesterol 45 >39 mg/dL Cholesterol / HDL Ratio 2.42 0.00-4.99 Ratio Non-HDL Cholesterol 64 <130 mg/dL LDL Cholesterol (Calculation) 48 <130 mg/dL LDL Cholesterol Levels* Less than 100 mg/dL Optimal 100 to 129 mg/dL Near Optimal/ Above Optimal 130 to 159 mg/dL Borderline High 160 to 189 mg/dL High 190 mg/dL and above Very High * Categories as recommended by the 2004 ATPIII guidelines LDL/HDL Ratio 1.1 <3.3 Ratio LDL Cholesterol Patient History Test Date: 03/20/2024 LDL Results: 58 Units: mg/dL % Change: - Test Date: 09/22/2024 LDL Results: 48 Units: mg/dL % Change: -17% REASON FOR VISIT 6 month check, Needs labs, diabetic eye exam, & flu vaccine Medications Medication SIG (Take, Route, Frequency, Duration) Notes Start Date End Date Status Aspirin 81 MG 1 TAB P.O. Q DAY 05/23/2007 Active amLODIPine Besylate 5 MG Take 1 tablet by mouth once daily for 90 days; Duration: 90 days Active Ezetimibe 10 MG 1 tab(s) orally once a day; Duration: 90 days Active Rosuvastatin Calcium 5 MG TAKE 1 TABLET BY MOUTH AT BEDTIME; Duration: 90 Active Neurontin 300 MG ONE QHS *Please review and pick correct strength-formulat ion from [employer] Safety Step options. If intended option is not shown, discontinue and re-order from Quick Search* 08/23/2019 Not-Taking Fluticasone Propionate 50 MCG/ACT 2 spray(s) intranasally once a day; Duration: 90 Active CoQ10 100 MG 2 cap(s) orally once a day 09/22/2011 Active Allopurinol 100 MG 2 tab(s) orally once daily; Duration: 90 Active Ativan 0.5 MG 1 tab(s) orally 3 times a day prn; Duration: 30 days 04/12/2024 Active Lisinopril 2.5 MG Take 1 tablet by mouth once daily; Duration: 90 Active B-12 1000 MCG 1 tab(s) orally once a day; Duration: 30 day(s) Active Vitamin D3 50 MCG (2000 UT) 1 tab(s) orally once a day; Duration: 30 day(s) Active Immunizations Vaccine Route Administration Date Status Hollyjohnnie Garza (6months&older) Unknown 09/22/2024 Pending Vital Signs Weight 184.4 lbs 09/22/2024 Blood pressure systolic 140 mm Hg 09/22/20 24 Blood pressure diastolic 90 mm Hg 024 Heart Rate 71 /min 09/22/2024 Height 68 in 09/22/2024 BMI 28.03 kg/m2 09/22/2024 Encounters Encounter Location Date Provider Diagnosis [facility] [address] [facility] [address] [facility] [address] [place] [phone] 09/22/2024 Rhonda Grissom Type 2 diabetes manolo itus without complication, without long-term current use of insulin E11.9 ; Essential hypertension I10 ; Pure hypercholesterolemia E78.00 ; Anxiety F41.9 and Encounter for immunization Z23 Assessments Encounter Date Diagnosis (ICD Code) Assessment Notes Treatment Notes Treatment Clinical Notes Section Notes 09/22/2024 Type 2 diabetes manolo itus without complication, without long-term current use of insulin (ICD-10 - E11.9) continue current therapy 09/22/2024 Essential hypertensi on (ICD-10 - I10) 09/22/2024 Pure hypercholesterolemia (ICD-10 - E78.00) 09/22/2024 Anxiety (ICD-10 - F41.9) 09/22/2024 Encounter for immunization (ICD-10 - Z23) Plan Of Treatment Treatment Notes Assessment Notes Type 2 diabetes mellitus wit hout complication, without long-term current use of insulin continue current therapy Next Appt Details Follow Up: 4 Months, Reason: Provider Name:Rhonda Vergara er, 10/01/2025 09:30:00 AM, [address] [facility] [address] [facility], [address], [place], [phone], Progress Notes * TAVARES TONGDOB:1965 ([age] yo M)Acc No.[id number]:09/22/2024 Progress Notes Patient: TAVARES HUNG Provider: Rhonda Grissom M.D. :1965 A ge:58 Y S ex:Male Date:09/22/2024 Address:[facility] [address], [place] [id number] Subjective: * Chief Complaints: * 1 . 6 month check. 2. Needs labs, diabetic eye exam, & flu vaccine. * HPI: C ardiology: The patient is here for a check up on Hypertension, Hyperlipidemia, and Diabetes. Pt states he is doing good and denies any new concerns. Pt is fasting. Denies : Chest Pain. D enies : Short of Breath. D enies : Dizziness. D enies : Palpitations. * ROS: D ERMATOLOGY: no R sammie. n o H jacquelyn. G ASTROENTEROLOGY: no N ausea. n o V omiting. n o D iarrhea.? U ROLOGY: no D ifficulty urinating. n o B lood in urine. * Medical History: H ypertension, Hyperlipidemia, Gout, Flu shot at [employer], Hep A shot at [facility] 2018, Type 2 DM - onset [...] cap(s) orally once a day , Taking Fluticasone Propionate 50 MCG/ACT Suspension 2 spray(s) intranasally once a day , Taking Ativan 0.5 MG Tablet 1 tab(s) orally 3 times a day prn , Taking Allopurinol 100 MG Tablet 2 tab(s) orally once daily , Taking Lisinopril 2.5 MG Tablet Take 1 tablet by mouth once daily , Taking amLODIPine Besylate 5 MG Tablet Take 1 tablet by mouth once daily for 90 days , Taking Rosuvastatin Calcium 5 MG Tablet [...] moxicillin, Nabumetone: rash. Objective: * Vitals: W t:184.4, Temp:97.8, BP:140/90, HR:71, Nurse:ARIELLA, Ht: 68, BMI:28.03. * Examination: G eneral Examination: General Appearance: [...] o leg edema. Assessment: * Assessment: 1. T ype 2 diabetes mellitus without complication, without long-term current use of insulin - E11.9 (Primary) 2 . E ssential hypertension - I10 3 . P ure hypercholesterolemia - E78.00 4 . A nxiety - F41.9 5 . E ncounter for immunization - Z23 Plan: * Treatment: Value Reference Range g lycohemoglobin 6.7% 5 - 6.5 % * Teresa Oates 09/22/2024 9:5 4:20 AM > , Provider reviewed results while patient in office. Notes: continue current therapy??2.?Essential hypertension?LAB: P-Comprehensive Metabolic Panel (CMP) (Collection Date & Time - 09/22/2024 09:00 AM)?gluc 123* Value Reference Range A /G Ratio 1.9 1.1-2.5 - * A lbumin 4.5 3.5-5.3 - g/dL * A lkaline Phosphatase 89 40-129 - IU/L * A LT (SGPT) 27 <5-55 - IU/L * A ST (SGOT) 29 <5-46 - IU/L * B ilirubin, Total 0.6 <0.2-1.2 - mg/dL * B UN 16 8-23 - mg/dL * C alcium 9.3 8.6-10.4 - mg/dL * C hloride 103 97-108 - mmol/L * C O2 22 22-32 - mmol/L * C reatinine 0.89 0.70-1.30 - mg/dL * G lucose 123 H 65-99 - mg/dL * P otassium 4.5 3.5-5.3 - mmol/L * S odium 139 135-145 - mmol/L * P rotein 6.9 6.0-8.3 - g/dL * e GFR by Creatinine 98 >59 - mL/min/1.73m2 * Nubia Cartagena 10/09/20 24 12:29:15 PM >See phone encounter 3.?Pure hypercholesterolemia?LAB: P-Lipid Panel (Collection Date & Time - 09/22/2024 09:00 AM)?Normal* Value Reference Range C holesterol / HDL Ratio 2.42 0.00-4.99 - Ratio * C holesterol 109 <200 - mg/dL * H DL Cholesterol 45 >39 - mg/dL * L DL Cholesterol (Calculation) 48 <130 - mg/d L * L DL/HDL Ratio 1.1 <3.3 - Ratio * N on-HDL Cholesterol 64 <130 - mg/dL * T riglycerides 80 <150 - mg/dL * Nubia Cartagena 10/09/20 24 12:29:15 PM >See phone encounter * Immunizations: Fluzone Quad (6months&older) : 0.5 mL (Pending) * Procedure Codes: 3 6416 CAPILLARY BLOOD DRAW, [address] GLYCATED HEMOGLOBIN TEST, Modifiers: QW * Follow Up: 4 Months * Images: Billing Information: * Visit Code: 41231 Office Visit, Est Pt., Level 4. * Procedure Codes: 01421 CAPILLARY BLOOD DRAW. 20575 GLYCATED HEMOGLOBIN TEST. Modifiers: QW * Electronic signature of Rhonda Grissom MD on 08/16/2025 at 03:24 PM EDT Sign off status: Pending * Provider: Rhonda Grissom M.D. Date: 11/22/2023 Generated for Printi ng/Faxing/eTransmitting on: 0 08/16/2025 03:24 PM EDT History and Physical Notes * [...]
--- OUTSIDE RECORDS SUMMARY | 2025-03-26 06:15 | XMS_ITS ---
Author Organization [facility] Address [address] [place] [id number] Care Team Providers Care Sheriff Name Role Phone Rhonda Grissom Primary Care Provider Allergies Allergen (clinical drug ingredient) Drug/Non Drug Allergy documented on EMR Reaction Allergy Type Onset Date Status amoxicillin Amoxicillin Unknown Drug Allergy Act joanne nabumetone Nabumetone rash Drug Allergy Activ e Results Component Value Reference Range Notes Glycohemoglobin A1c (in hous e) Reviewed date:03/27/2025 01:57:47 PM Interpretation:6.9 Performing Lab: Notes/Report: 6.9 glycohemoglobin 6.9% 5 - 6.5 % P-Comprehensive Metabolic Pa shaw (CMP) Reviewed date:03/29/2025 10:54:38 AM Interpretation:gluc 165, a1c discussed in OV Performing Lab: Notes/Report: Test performed by [facility], [facility] [address] [place] [address] , [address], [place] [address] Chidi Villaseñor MD, Edge Trimming Machine Operator CLIA: [id number] Sodium 137 135-145 mmol/L Potassium 4.6 3.5-5.3 mmol/L Chloride 100 97-108 mmol/L CO2 24 22-32 mmol/L Glucose 165 65-99 mg/dL BUN 12 8-23 mg/dL Creatinine 0.96 0.70-1.30 mg/dL Calcium 9.5 8.6-10.4 mg/dL eGFR by Creatinine 90 >59 mL/min/1.73m2 Protein 7.1 6.0-8.3 g/dL Albumin 4.5 3.5-5.3 g/dL Alkaline Phosphatase 103 40-129 IU/L ALT (SGPT) 31 <5-55 IU/L AST (SGOT) 26 <5-46 IU/L Bilirubin, Total 0.6 <0.2-1.2 mg/dL A/G Ratio 1.7 1.1-2.5 P-Lipid Panel Reviewed date:03/29/2025 10:54:38 AM Interpretation:Normal Performing Lab: Notes/Report: Test performed by [facility], [address] , [place] [address] Chidi Villaseñor MD, Edge Trimming Machine Operator CLIA: [id number] Cholesterol 122 <200 mg/dL Triglycerides 93 <150 mg/dL HDL Cholesterol 44 >39 mg/dL Cholesterol / HDL Ratio 2.77 0.00-4.99 Ratio Non-HDL Cholesterol 78 <130 mg/dL LDL Cholesterol (Calculation) 59 <130 mg/dL LDL Cholesterol Levels* Less than 100 mg/dL Optimal 100 to 129 mg/dL Near Optimal/ Above Optimal 130 to 159 mg/dL Borderline High 160 to 189 mg/dL High 190 mg/dL and above Very High * Categories as recommended by the 2004 ATPIII guidelines LDL/HDL Ratio 1.4 <3.3 Ratio LDL Cholesterol Patient History Test Date: 03/20/2024 LDL Results: 58 Units: mg/dL % Change: - Test Date: 09/22/2024 LDL Results: 48 Units: mg/dL % Change: -17% Test Date: 03/26/2025 LDL Results: 59 Units: mg/dL % Change: +22% P-Microalbumin/Creatinine, R andom Urine Sample Reviewed date:03/29/2025 10:54:38 AM Interpretation:Normal Performing Lab: Notes/Report: Test performed by [facility] , [address], [place] [address] Chidi Villaseñor MD, Edge Trimming Machine Operator CLIA: [id number] Albumin/Creatinine Ratio, Urine 3 0-30 ug/m g Microalbumin, Urine, Random 0.3 Creatinine, Urine 112.1 REASON FOR VISIT 4 mth, Needs labs with PSA & diabetic eye exam Medications Medication SIG (Take, Route, Frequency, Duration) Notes Start Date End Date Status Neurontin 300 MG ONE QHS *Please review and pick correct strength-formulat ion from Neuronex options. If intended option is not shown, discontinue and re-order from Quick Search* 08/23/2019 Not-Taking Ativan 0.5 MG 1 tab(s) orally 3 times a day prn; Duration: 30 days 10/10/2024 Active Ezetimibe 10 MG Take 1 tablet by mouth once daily; Duration: 90 Active amLODIPine Besylate 5 MG Take 1 tablet by mouth once daily for 90 days; Duration: 90 Active Rosuvastatin Calcium 5 MG TAKE 1 TABLET BY MOUTH AT BEDTIME; Duration: 90 Active B-12 1000 MCG 1 tab(s) orally once a day; Duration: 30 day(s) Active CoQ10 100 MG 2 cap(s) orally once a day 09/22/2011 Active Lisinopril 2.5 MG Take 1 tablet by mouth once daily; Duration: Active Fluticasone Propionate 50 MCG/ACT 2 spray(s) intranasally once a day; Duration: Active Allopurinol 100 MG 2 tab(s) orally once daily; Duration: Active Vitamin D3 50 MCG (2000 UT) 1 tab(s) orally once a day; Duration: 30 day(s) Active Aspirin 81 MG 1 TAB P.O. Q DAY 05/23/2007 Active Vital Signs Weight 183.2 lbs 03/26/2025 Blood pressure systolic 128 mm Hg 03/26/20 25 Blood pressure diastolic 90 mm Hg 025 Heart Rate 87 /min 03/26/2025 Height 68 in 03/26/2025 BMI 27.85 kg/m2 03/26/2025 Encounters Encounter Location Date Provider Diagnosis [facility] [address] [facility] 36 [facility] [address] [place] [id number] 03/26/2025 Rhonda Grissom Type 2 diabetes manolo itus without complication, without long-term current use of insulin E11.9 ; Essential hypertension I10 ; Low vitamin B12 level R79.89 ; Pure hypercholesterolemia E78.00 and BMI 27.0-27.9,adult Z68.27 Assessments Encounter Date Diagnosis (ICD Code) Assessment Notes Treatment Notes Treatment Clinical Notes Section Notes 03/26/2025 Type 2 diabetes manolo itus without complication, without long-term current use of insulin (ICD-10 - E11.9) 03/26/2025 Essential hypertensi on (ICD-10 - I10) 03/26/2025 Low vitamin B12 leve l (ICD-10 - R79.89) 03/26/2025 Pure hypercholesterolemia (ICD-10 - E78.00) 03/26/2025 BMI 27.0-27.9,adult (ICD-10 - Z68.27) Plan Of Treatment Next Appt Details Follow Up: 6 Months, Reason: Provider Name:Rhonda thacker, 10/01/2025 09:30:00 AM, [address] [facility] 36 [facility], [address], [place], [id number], Progress Notes * TAVARES TONGDOB:1965 ([age] yo M)Acc No.[id number]:03/26/2025 Progress Notes Patient: TAVARES HUNG Provider: Rhonda Grissom M.D. :1965 A ge:59 Y S ex:Male Date:03/26/2025 Address:[address] [place] [address], [place], [id number] Subjective: * Chief Complaints: * 1 . 4 mth. 2. Needs labs with PSA & diabetic eye exam. * HPI: C ardiology: The patient is here for a check up on Hypertension, Hyperlipidemia, and Diabetes. Pt states he doing good and denies any new concerns. Pt states he is fasting. Taking Magnesium supplement. Denies : Chest Pain. D enies : [...] H ypertension, Hyperlipidemia, Gout, Flu shot at [facility], Hep A shot at H. Dept[facility] 2018, [...] spray(s) intranasally once a day , Taking Allopurinol 100 MG Tablet 2 tab(s) orally once daily , Taking Lisinopril 2.5 MG Tablet Take 1 tablet by mouth once daily , Taking Ativan 0.5 MG Tablet 1 tab(s) orally 3 times a day prn , Taking amLODIPine Besylate 5 MG Tablet Take 1 tablet by mouth once daily for 90 days , Taking Rosuvastatin Calcium 5 MG Tablet TAKE 1 TABLET BY MOUTH AT BEDTIME , Taking Ezetimibe 10 MG Tablet Take 1 tablet by mouth once daily , Not-Taking Neurontin 300 MG ONE QHS , Notes to Pharmacist: *Please review and pick correct strength-formulation from Medispan options. If intended option is not shown, discontinue and re-order from Quick Search*, Medication List reviewed and reconciled with the patient * Allergies: A moxicillin, Nabumetone: rash. Objective: * Vitals: W t: 183.2, Temp: 98.1, BP: 128/90, HR: 87, Nurse: ARIELLA, Ht: 68, BMI:27.85. * Examination: G eneral Examination: General Appearance: N AD. H EENT: u nremarkable.?Oral cavity: n o lesions, mucosa moist and WNL, no erythema. N josh: s upple, no lymphadenopathy, no carotid bruits. C hest: n ormal shape and expansion. H eart: R SR, 124/88. L ungs: c lear to auscultation. A bdomen: soft and nontender, no organomegaly or masses. N eurologic Exam: I ntact, gait normal. S kin: n ormal, no rash. P eripheral pulses: n ormal . B ack: skin changes of LS spine from use of heating pad. Extremities: n o leg edema. Assessment: * Assessment: 1. E ssential hypertension - I10 2 . T ype 2 diabetes mellitus without complication, without long-term current use of insulin - E11.9 3 . L ow vitamin B12 level - R79.89 4 . P ure hypercholesterolemia - E78.00 5 . B AL 27.0-27.9,adult - Z68.27 Plan: * Treatment: Value Reference Range A /G Ratio 1.7 1.1-2.5 - * A lbumin 4.5 3.5-5.3 - g/dL * A lkaline Phosphatase 103 40-129 - IU/L * A LT (SGPT) 31 <5-55 - IU/L * A ST (SGOT) 26 <5-46 - IU/L * B ilirubin, Total 0.6 <0.2-1.2 - mg/dL * B UN 12 8-23 - mg/dL * C alcium 9.5 8.6-10.4 - mg/dL * C hloride 100 97-108 - mmol/L * C O2 24 22-32 - mmol/L * C reatinine 0.96 0.70-1.30 - mg/dL * G lucose 165 H 65-99 - mg/dL * P otassium 4.6 3.5-5.3 - mmol/L * S odium 137 135-145 - mmol/L * P rotein 7.1 6.0-8.3 - g/dL * e GFR by Creatinine 90 >59 - mL/min/1.73m2 * Teresa Oates 03/29/2025 10: 53:47 AM > Patient informed of normal results. 2.?Type 2 diabetes mellitus without complication, without long-term current use of insulin?LAB: P-Microalbumin/Creatinine, Random Urine Sample (Collection Date & Time - 03/26/2025 09:30 AM)?Normal* Value Reference Range A lbumin/Creatinine Ratio, Urine 3 0-30 - ug /mg * C reatinine, Urine 112.1 - mg/dL * M icroalbumin, Urine, Random 0.3 - mg/dL * Shakira Oatesileana Gutiérrez 03/29/2025 10: 53:47 AM > Patient informed of normal results. ?LAB: Glycohemoglobin A1c (in house) (Collection Date & Time - 03/26/2025)? 6.9* Value Reference Range g lycohemoglobin 6.9% 5 - 6.5 % * Ashley Oatesniileana Gutiérrez 03/26/2025 10: 48:33 AM > Provider reviewed results while patient in office. 3.?Pure hypercholesterolemia?LAB: P-Lipid Panel (Collection Date & Time - 03/26/2025 09:30 AM)?Normal* Value Reference Range C holesterol / HDL Ratio 2.77 0.00-4.99 - Ratio * C holesterol 122 <200 - mg/dL * H DL Cholesterol 44 >39 - mg/dL * L DL Cholesterol (Calculation) 59 <130 - mg/d L * L DL/HDL Ratio 1.4 <3.3 - Ratio * N on-HDL Cholesterol 78 <130 - mg/dL * T riglycerides 93 <150 - mg/dL * AbbevilleShakira birdileana uGtiérrez 03/29/2025 10: 53:47 AM > Patient informed of normal results. * Procedure Codes: 8 3036 GLYCATED HEMOGLOBIN TEST, Modifiers: QW , 3044F HG A1C LEVEL LT 7.0%, 3074F SYST BP LT 130 MM HG, 3079F DIAST BP 80-89 MM HG * Follow Up: 6 Months * Images: Billing Information: * Visit Code: 54842 Office Visit, Est Pt., Level 4. * Procedure Codes: 82775 GLYCATED HEMOGLOBIN TEST. Modifiers: QW 3044F HG A1C LEVEL LT 7.0%. 3074F SYST BP LT 130 MM HG. 3079F DIAST BP 80-89 MM HG. * Electronic signature of Rhonda Grissom MD on 08/16/2025 at 03:23 PM EDT Sign off status: Pending * Provider: Rhonda Grissom M.D. Date: 0 03/26/2025 Generated for Printi ng/Faxing/eTransmitting on: 0 08/16/2025 03:23 PM EDT History and Physical Notes * HPI (History of Present Illness) Category Sub-Category Detail Notes Category Not es Cardiology Short of Breath Chest Pain Palpitations Dizziness Examination Category Sub-Category Detail Notes Category Not es General Examination HEENT: unremarkable Heart: RSR, 124/88 Lungs: clear to auscultatio n Abdomen: soft [...]
--- NOTE | 2025-08-16 15:05 | XR_ITS ---
FINAL REPORT CLINICAL HISTORY: PAIN FINDINGS: AP and lateral views of the sacrum and coccyx were obtained. There is no prior exam for comparison. There is no acute fracture or other acute osseous abnormality. The SI joints are symmetric bilaterally. The sacrococcygeal articulation appears within normal limits. No acute soft tissue abnormality is present. IMPRESSION: No acute abnormality of the sacrum or coccyx. Reviewed, Interpreted and Dictated by Nicole Romo MD Transcribed by Rhonda Quinn Authenticated and [facility]
--- OUTSIDE RECORDS SUMMARY | 2025-08-16 15:24 | XMS_ITS | Patient Health Record ---
Author Organization [facility] Address [address] [facility] [address] [place] [id number] Care Team Providers Care Datapower Developer Name Role Phone Rhonda Grissom Primary Care Provider CatawbaHari perales Unavailable [phone] Allergies Allergen (clinical drug ingredient) Drug/Non Drug Allergy documented on EMR Reaction Allergy Type Onset Date Status amoxicillin Amoxicillin Unknown Drug Allergy Act joanne nabumetone Nabumetone rash Drug Allergy Activ e Results Component Value Reference Range Notes P-Comprehensive Metabolic Pa shaw (CMP) Reviewed date:10/09/2024 12:29:22 PM Interpretation:gluc 123 Performing Lab: Notes/Report: Test performed by [facility], [facility] [address] [place] [address] , [address], [place] [address] Chidi Villaseñor MD, Patient'S Librarian CLIA: [id number] Sodium 139 135-145 mmol/L Potassium 4.5 3.5-5.3 [...] Interpretation:Normal Performing Lab: Notes/Report: Test performed by [facility] [address] , [address], [place] [address] Chidi Villaseñor MD, Patient'S Librarian CLIA: [id number] Cholesterol 109 <200 mg/dL Triglycerides 80 <150 [...] Results: 48 Units: mg/dL % Change: -17% Glycohemoglobin A1c (in hous e) Reviewed date:03/27/2025 01:57:47 PM Interpretation:6.9 Performing Lab: Notes/Report: 6.9 glycohemoglobin 6.9% 5 - 6.5 % P-Comprehensive Metabolic Pa shaw (CMP) Reviewed date:03/29/2025 10:54:38 AM Interpretation:gluc 165, a1c discussed in OV Performing Lab: Notes/Report: Test performed by [facility] [address] [place], [place] [address] [place] [address], [place] [address] Chidi Villaseñor MD, Patient'S Librarian CLIA: [id number] Sodium 137 135-145 mmol/L Potassium 4.6 3.5-5.3 [...] Interpretation:Normal Performing Lab: Notes/Report: Test performed by [facility] [address] [place], [place] [address] [place] [address], [place] [address] Chidi Villaseñor MD, Patient'S Librarian CLIA: [id number] Cholesterol 122 <200 mg/dL Triglycerides 93 <150 [...] Interpretation:Normal Performing Lab: Notes/Report: Test performed by [facility] [address] [place] [address] , [address], [place] [address] Chidi Villaseñor MD, Patient'S Librarian CLIA: [id number] Albumin/Creatinine Ratio, Urine 3 0-30 ug/m g Microalbumin, Urine, Random 0.3 Creatinine, Urine 112.1 Glycohemoglobin A1c (in hous e) Reviewed date:09/26/2024 11:40:37 AM Interpretation:6.7 Performing Lab: Notes/Report: 6.7 glycohemoglobin 6.7% 5 - 6.5 % Medications Medication SIG (Take, Route, Frequency, Duration) Notes Start Date End Date Status Ezetimibe 10 MG Take 1 tablet by mouth once daily; Duration: 90 Active Fluticasone Propionate 50 MCG/ACT Use 2 spray(s) in each nostril once daily; Duration: 90 Active Ativan 0.5 MG 1 tab(s) orally 3 times a day prn; Duration: 30 days 07/03/2025 Active Allopurinol 100 MG Take 2 tablets by mouth once daily; Duration: 90 Active amLODIPine Besylate 5 MG Take 1 tablet by mouth once daily; Duration: 90 Active CoQ10 100 MG 2 cap(s) orally once a day 09/22/2011 Active B-12 1000 MCG 1 tab(s) orally once a day; Duration: 30 day(s) Active Ibuprofen 600 MG 1 Orally 3 times a day; Duration: 30 days 08/16/2025 Active Magnesium 100 MG 2 tablets Orally daily Active Rosuvastatin Calcium 5 MG 1 tablet Orally Once a day at bedtime; Duration: 90 days Active Lisinopril 2.5 MG Take 1 tablet by mouth once daily; Duration: 90 Active Vitamin D3 50 MCG (2000 UT) 1 tab(s) orally once a day; Duration: 30 day(s) Active Aspirin 81 MG 1 TAB P.O. Q DAY 05/23/2007 Active Neurontin 300 MG ONE QHS *Please review and pick correct strength-formulati on from Medispan options. If intended option is not shown, discontinue and re-order from Quick Search* 08/23/2019 Not-Taking Immunizations Vaccine Route Administration Date Status Comme nts COVID 19 Moderna IM Intramuscular 11/27/2020 Administered Fluzone Intradermal Quad private(18-64yrs) ID Intradermal 08/17/2016 Administered Fluzone PF Quad (6-35 months) Unknown 10/04/2018 Administered Fluzone PF Quad (6-35 months) Unknown 08/15/2019 Administered Fluzone PF Quad (6-35 months) Unknown 09/04/2021 Administered Fluzone Quad (6months&older) IM Intramuscular 07/30/2015 Administered Given by Shannon Fluzone Quad (6months&older) IM Intramuscular 09/27/2017 Administered Fluzone Quad (6months&older) IM Intramuscular 07/22/2020 Administered Fluzone Quad (6months&older) Unknown 09/22/2024 Pending Fluzone Quad (6months&older) IM Intramuscular 08/16/2025 Administered PNEUMOVAX 23 VACCINE Unknown 08/15/2019 Administered Prevnar (PCV20) Unknown 01/11/2023 Administered Shingrix Unknown 05/29/2020 Administered Shingrix Unknown 08/09/2020 Administered Tetanus Tdap-Adacel (over 7yrs) IM Intramuscular 05/02/2013 Administered Tetanus Tdap-Adacel (over 7yrs) Unknown 10/04/2018 Administered xFlu shot-36 months and older IM Intramuscular 10/09/2005 Administered xFlu shot-36 months and older IM Intramuscular 09/28/2006 Administered xFlu shot-36 months and older IM Intramuscular 09/06/2007 Administered xFlu shot-36 months and older IM Intramuscular 10/19/2008 Administered xFlu shot-36 months and older IM Intramuscular 07/16/2009 Administered xFlu shot-36 months and older IM Intramuscular 04/22/2010 Administered xFluzone (6mos and older)-trivalent IM Intramuscular 09/22/2011 Administered xFluzone (6mos and older)-trivalent IM Intramuscular 10/18/2012 Administered Problems Problem Type SNOMED Code ICD Code Onset Dates Problem Status W/U Status Risk Notes Problem Hyperglycemia (44801285) Hyperglycemia (R73.9) Active confirmed Problem Vitamin D deficiency (71056257) Vitamin D deficiency (E55.9) Active confirmed Problem Essential hypertension (57113176) Essential hypertension (I10) Active confirmed Problem Anxiety (50900014) Anxiety (F41.9) Active confi rmed Problem Screening for malignant neoplasm of prostate (565126510) Screening for prostate cancer (Z12.5) Active confirmed Problem Seasonal allergic rhinitis (432017269) Other seasonal allergic rhinitis (J30.2) Active confirmed Problem Chronic pain (12637334) Other chronic pain (G89.29) Active confirmed Problem Displacement of lumbar intervertebral disc without myelopathy (65596473) Bulging lumbar disc (M51.26) Active confirmed Problem Chronic fatigue syndrome (79432471) Chronic fatigue (R53.82) Active confirmed Problem Pain in coccyx (finding) (09790299) Coccygeal pain (M53.3) Active confirmed Problem Type II diabetes mellitus without complication (088453909) Type 2 diabetes mellitus without complication, without long-term current use of insulin (E11.9) Active confirmed Problem Pure hypercholesterolemia (573097300) Pure hypercholesterolemia (E78.00) Active confirmed Vital Signs Heart Rate 83 /min 08/16/2025 Blood pressure diastolic 90 mm Hg 08/16/2025 Height 68 in 08/16/2025 Blood pressure systolic 120 mm Hg 08/16/2025 Weight 183.8 lbs 08/16/2025 BMI 27.94 kg/m2 08/16/2025 Encounters Encounter Location Date Provider [facility] [address] [place], [place] [phone] 09/22/2024 Rhonda Grissom Type 2 diabetes manolo itus without complication, without long-term current use of insulin E11.9 ; Essential hypertension I10 ; Pure hypercholesterolemia E78.00 ; Anxiety F41.9 and Encounter for immunization Z23 [facility] [facility] [address] [place], [place] [id number] 03/26/2025 Rhonda Grissom Type 2 diabetes manolo itus without complication, without long-term current use of insulin E11.9 ; Essential hypertension I10 ; Low vitamin B12 level R79.89 ; Pure hypercholesterolemia E78.00 and BMI 27.0-27.9,adult Z68.27 [facility] [address] [place], [place] [id number] 08/16/2025 Rhonda Grissom Coccygeal pain M53.3 [facility] [address] [place], [place] [id number] 10/09/2024 Rhonda Grissom [facility] [address] [place], [place] [id number] 10/09/2024 J Cem Grissom Lumbago with sciatic a, left side M54.42 [facility] [address] [place], [place] [id number] 04/05/2025 Hari C[place]ba Lumbago with sciatic a, left side M54.42 [facility] [address] [place], [place] [id number] 05/15/2025 J Cem Grissom Lumbago with sciatic a, left side M54.42 [facility] [address] [place], [place] [id number] 07/02/2025 Rhonda Grissom Lumbago with sciatic a, left side M54.42 Assessments Encounter Date Diagnosis (ICD Code) Assessment Notes Treatment Notes Treatment Clinical Notes Section Notes 09/22/2024 Essential hypertensi on (ICD-10 - I10) 09/22/2024 Type 2 diabetes manolo itus without complication, without long-term current use of insulin (ICD-10 - E11.9) continue current therapy 10/09/2024 Lumbago with sciatic a, left side (ICD-10 - M54.42) 03/26/2025 Essential hypertensi on (ICD-10 - I10) 03/26/2025 Type 2 diabetes manolo itus without complication, without long-term current use of insulin (ICD-10 - E11.9) 04/05/2025 Lumbago with sciatic a, left side (ICD-10 - M54.42) 05/15/2025 Lumbago with sciatic a, left side (ICD-10 - M54.42) 07/02/2025 Lumbago with sciatic a, left side (ICD-10 - M54.42) 08/16/2025 Coccygeal pain (ICD- 10 - M53.3) 03/26/2025 Low vitamin B12 leve l (ICD-10 - R79.89) 09/22/2024 Pure hypercholesterolemia (ICD-10 - E78.00) 09/22/2024 Anxiety (ICD-10 - F41.9) 03/26/2025 Pure hypercholesterolemia (ICD-10 - E78.00) 03/26/2025 BMI 27.0-27.9,adult (ICD-10 - Z68.27) 09/22/2024 Encounter for immunization (ICD-10 - Z23) Plan Of Treatment Pending Test Test Name Order Date x ray : Coccyx 08/16/2025 P-Comprehensive Metabolic Panel (CMP) P-PSA 08/16/2025 Next Appt Details Provider Name:Rhonda Vergara er, 10/01/2025 09:30:00 AM, [address], [address], [place], [place], [id number], Insurance Providers Payer Name Payer Address Payer Phone Subscriber Number Group Number Insured Name Patient Relationship to Insured Coverage Start Date Coverage End Date [employer] [address] [place] [address] [id number] TAVARES TONG Self - patient is the insured [employer] ON OFFICE OF WORK[employer]'S [employer] [address] [id number] TAVARES TONG Self - patient is the insured Medications Administered Medication Instructions Date of Administration Dosage Notes B-12 11/02/2011 1 mL Medical (General) History Medical History History ICD Code hypertension hyperlipidemia Gout Flu shot at [facility] Hep A shot at [facility] 2018 Type 2 DM - onset 03/2019 Disc bulge L4-5, L5-S1 COVID 19 Vaccine Moderna, Nov 2020 COVID 19 Booster 09/2021 Surgical History Surgery Date(Month/Year) none Hospitalization History Reason Date(Month/Year) kidney stones
--- OUTSIDE RECORDS SUMMARY | 2025-08-16 15:24 | XMS_ITS | Clinical Summary ---
Author Organization [facility] Address [address] [phone] Care Team Providers Care Postal Service Mail Processor Name Role Phone Unavailable Primary Care Provider Unavailabl e Social History Tobacco Use Types Packs/Day Years Used Date Smoking Tobacco: Never Assessed Sex and Gender Information Value Date Recorded Sex Assigned at Not on file Legal Sex Male 9:40 PM EDT Gender Identity Not on file Sexual Orientation Not on file Plan of Treatment Health Maintenance Due Date Last Done Comments [facility]-Depression Screening 1965 [facility]Infant/Child/Adol SDOH Screenings 1965 [facility]- SDOH Screenings 1981 [facility]-Adult SDOH Screenings 1981 [facility]-DTaP,Tdap,and Td Vaccine s (1 - Tdap) 1982 CT Colonography 2008 Colonoscopy 2008 FIT-DNA 2008 FIT 2008 FOBT 2008 Sigmoidoscopy 2008 [facility]-Colorectal Cancer Screening 2008 [facility]-Pneumococcal Vaccine: 50 + Years (1 of 1 - PCV) 2013 [facility]-Zoster Vaccines (1 of 2) 2013 [facility]-FDMGH-17 Vaccine (1 - 20 24-25 season) 2025 [facility]-Influenza Vaccine (#1) 2025 [facility]-RSV Vaccine: 60+ Years o r (1 - 1-dose 75+ series) 2038 HPV Vaccines Aged Out No longer eligi ble based on patient's age to complete this topic [facility]-HIB Vaccines Aged Out No longer e ligible based on patient's age to complete this topic [facility]-Hepatitis A Vaccines Aged Out No longer eligible based on patient's age to complete this topic [facility]-IPV Vaccines Aged Out No longer e ligible based on patient's age to complete this topic [facility]-Rotavirus Vaccines Aged Out No lo nger eligible based on patient's age to complete this topic
== END 2025-08-16 23:59 | disposition home or self-care (01) ==
LOC: RAD 15:02
PROVIDERS: PCP Family Medicine; Visit Provider Family Medicine
DX: M53.3 Sacrococcygeal disorders, not elsewhere classified (principal)
CPT/HCPCS: 72220